=== PATIENT | female | born 1980 | race Native Hawaiian/Other Pacific Islander ===

== ENCOUNTER 2017-02-15 21:07 | Emergency (ER) | payer BC ==
[~2017-02-15] VITALS: Ht 154.9 cm; Wt 96.2 kg
[2017-02-15 21:15] VITALS: TEMP 100.1
[2017-02-15] MEDS ORDERED: LISI5TAB10 PO (21:29)
[2017-02-15] MEDS ORDERED: SERT50TA PO (21:30)
[2017-02-15] MEDS ORDERED: SYNTHROID (21:30)
[2017-02-15 23:56] VITALS: BP 134/82
== END 2017-02-15 23:56 | disposition home or self-care (01) ==
LOC: ED 21:07
DX: L02.214 Cutaneous abscess of groin (principal); R19.7 Diarrhea, unspecified; R52 Pain, unspecified
CPT/HCPCS: 87804; 96372; 99283; J0690

== ENCOUNTER 2019-06-05 23:05 | Emergency (ER) | payer OTHER ==
[~2019-06-05] VITALS: Ht 154.9 cm; Wt 77.1 kg
[~2019-06-05 23:05] MED LIST: LISI5TAB10 PO; SERT50TA PO; SYNTHROID
[2019-06-06 00:42] VITALS: BP 149/81; TEMP 97.9
== END 2019-06-06 00:42 | disposition home or self-care (01) ==
LOC: ED 23:05
DX: S00.83XA Contusion of other part of head, initial encounter (principal); S10.83XA Contusion of other specified part of neck, initial encounter
CPT/HCPCS: 96372; 99283; J1885

== ENCOUNTER 2022-01-14 13:39 | Emergency (ER) | payer OTHER ==
[~2022-01-14] VITALS: Ht 154.9 cm; Wt 93.0 kg
[2022-01-14 13:55] VITALS: TEMP 98.4
[2022-01-14 14:10] LABS: PLATELET COUNT 224 K/uL (152-353)
[2022-01-14 14:18] LABS: POTASSIUM 4.4 mmol/L (3.6-5.2)
[2022-01-14 17:38] VITALS: BP 134/94
== END 2022-01-14 17:40 | disposition home or self-care (01) ==
LOC: ED 13:39
PROVIDERS: Emergency Medicine
DX: N13.2 Hydronephrosis with renal and ureteral calculous obstruction (principal); Z87.442 Personal history of urinary calculi
CPT/HCPCS: 36415; 80048; 80307; 81000; 85007; 85027; 96374; 96375; 96376; 99284; J1170; J1885; J2175; J2405; J2550